=== PATIENT | male | born 1960 | race Asian ===

== ENCOUNTER 2016-11-11 15:05 | Observation (INO) | payer OTHER ==
[~2016-11-11] VITALS: Ht 170.2 cm; Wt 81.1 kg
[~2016-11-11 15:05] MED LIST: ASPIR 8181 M1; ASPIR 8181 M1 PO; AUGMENTIN875 MG PO; BACTRIM,SEPT1 TABLET PO; COUMADIN,JANTO2.5 MG; COUMADIN,JANTOVE5 MG PO; DAILY VITAMIN1 EAC8 PO; DAILY VITE1 EAC1 PO; FLEXERIL10 MG PO; FLOMAX0.4 M1; FLOMAX0.4 MG PO; HYDROCODON-ACE1 EAC7 PO; LOVASTATIN40 MG PO; LOVENOX100 MG/1 M; METHOTREXATE2.5 MG PO; MOTRIN IB200 MG PO; NAPROSYN500 MG PO; NAPROXEN500 MG PO; OXYCODONE H5 MG/5 ML PO; PANTOPRAZOLE; PROBIOTIC1 EAC1 PO; PROTONIX40 MG; PROTONIX40 MG PO; Protonix PO; TRAMADOL HCL50 MG PO; TYLENOL EXTRA500 MG PO; ZOFRAN4 MG PO; ZOLOFT100 MG PO; ZOLOFT50 M1 PO; ZYRTEC10 M3 PO; ZYRTEC5 MG PO
[2016-11-11 16:13] LABS: HEMATOCRIT 48.5 % (38.0-50.0); MCHC 34.4 G/DL (30.0-36.0); MEAN PLAT.VOLUME 9.5 uM^3 (9.0-12.4); PLATELET COUNT 223 K/uL (156-360); RBC DIS.WIDTH-CV 13.4 % (11.8-14.6); RBC DIS.WIDTH-SD 43.9 % (39-53); RED BLOOD COUNT 5.39 M/uL (4.00-5.50); WHITE BLOOD COUNT 7.9 K/uL (4.1-10.2)
[2016-11-11 16:27] LABS: CHLORIDE 106 mEq/L (99-109); POTASSIUM 3.8 mEq/L (3.7-5.4); SODIUM 139 mEq/L (136-147)
[2016-11-11 16:29] LABS: GLUCOSE 104 mg/dL (70-99)
[2016-11-11 16:31] LABS: ANION GAP 10 MEQ/L (2-14); TOTAL BILIRUBIN 0.6 mg/dL (0.0-1.0)
[2016-11-11 16:33] LABS: ALKALINE PHOSPHATASE 83 IU/L (3-129); GFR ESTIMATE (CALCULATED) > 59 mL/min/
[2016-11-11 16:34] LABS: UREA NITROGEN (BUN) 20 mg/dL (9-23)
[2016-11-11 16:37] LABS: LIPASE 20 U/L (1.0-51.0)
[2016-11-11 19:23] LABS: ADD MIUA? YES; BILIRUBIN NEGATIVE; BLOOD NEGATIVE; COLOR AMBER ((YELLOW)); GLUCOSE (STRIP) NEGATIVE; KETONES NEGATIVE; LEUKOCYTES NEGATIVE; NITRITE NEGATIVE; PROTEIN (STRIP) 30; SPECIFIC GRAVITY 1.025 (1.000-1.030); UROBILINOGEN 0.2 MG/DL (0.2-1.0)
[2016-11-11 20:03] LABS: BACTERIA NONE SEEN /HPF; EPITHELIAL CELLS RARE /HPF; MUCUS TRACE /LPF; UCUL ADDED? NO
[2016-11-11] MEDS ORDERED: ONE-A-DAY ESSE1 EAC1 PO (21:23)
[2016-11-11] MEDS ORDERED: LO-DOSE ASPIRIN81 M2 PO (21:24)
[2016-11-11 22:56] VITALS: BP 119/79
[2016-11-12 00:54] VITALS: BP 98/59
[2016-11-12 04:42] VITALS: BP 102/56
[2016-11-12 05:49] LABS: METH RESISTANT S AUREUS PCR NEGATIVE (NEGATIVE)
[2016-11-12 05:54] LABS: PROBE CHECK PASS; SPECIMEN PROCESSING CONTROL PASS
[2016-11-12 06:07] LABS: ANION GAP 8 MEQ/L (2-14); CHLORIDE 111 MEQ/L (99-109); GFR ESTIMATE (CALCULATED) > 59 mL/min/; GLUCOSE 89 mg/dL (70-99); POTASSIUM 3.4 MEQ/L (3.7-5.4); SAMPLE HEMOLYSIS CHECK 1; SAMPLE ICTERIC CHECK 0; SAMPLE LIPEMIA CHECK 0; SODIUM 139 MEQ/L (136-147); UREA NITROGEN (BUN) 17 mg/dL (9-23)
[2016-11-12 06:21] LABS: EOSINOPHIL (%) 2.2 % (0-5); EOSINOPHIL COUNT 0.1 K/uL (0-0.3); HEMATOCRIT 42.7 % (38.0-50.0); IMMATURE GRANULOCYTE (%) 0.4 % (0.0-0.7); LYMPHOCYTE COUNT 1.5 K/uL (1.0-2.8); MCH 30.4 PG (29.0-34.0); MCV 89.5 FL (86-99); MEAN PLAT.VOLUME 9.7 uM^3 (9.0-12.4); MONOCYTE (%) 15.7 % (3-12); MONOCYTE COUNT 0.9 K/uL (0-0.8); NEUTROPHIL (%) 54.7 % (45-76); PLATELET COUNT 211 K/uL (156-360); RBC DIS.WIDTH-CV 13.3 % (11.8-14.6); RBC DIS.WIDTH-SD 43.8 % (39-53); RED BLOOD COUNT 4.77 M/uL (4.00-5.50); WHITE BLOOD COUNT 5.5 K/uL (4.1-10.2)
[2016-11-12 09:00] VITALS: BP 106/73
[2016-11-12 12:28] VITALS: BP 103/59
[2016-11-12 16:55] VITALS: BP 105/61
[2016-11-12 21:00] VITALS: BP 104/64
[2016-11-13 00:10] VITALS: BP 101/71
[2016-11-13 04:58] VITALS: BP 116/67
[2016-11-13 07:00] VITALS: BP 113/70
[2016-11-13 11:58] VITALS: BP 110/66
[2016-11-13] MEDS ORDERED: BENTYL20 MG PO (13:58)
== END 2016-11-13 14:29 | disposition home or self-care (01) ==
LOC: EME 15:05 → EDOF 21:06 → 5WEST 21:06
PROVIDERS: Hospitalist
DX: K56.5 Intestinal adhesions [bands] with obstruction (postinfection) (principal); Z85.038 Personal history of other malignant neoplasm of large intestine; Z93.3 Colostomy status; Z86.711 Personal history of pulmonary embolism
CPT/HCPCS: 74020; 74176; 80048; 80053; 81003; 83690; 85025; 85027; 87641; 99281; 99285; G0378; J1650; J1885; J2405; J3010; J7030; S0028

== ENCOUNTER 2017-05-20 02:38 | Emergency (ER) | payer OTHER ==
[~2017-05-20] VITALS: Ht 170.2 cm; Wt 89.5 kg
[~2017-05-20 02:38] MED LIST changes: +BENTYL20 MG PO; +LO-DOSE ASPIRIN81 M2 PO; +ONE-A-DAY ESSE1 EAC1 PO
[2017-05-20 05:11] VITALS: BP 111/63
== END 2017-05-20 05:13 | disposition home or self-care (01) ==
LOC: EME 02:38
DX: J06.9 Acute upper respiratory infection, unspecified (principal); K21.9 Gastro-esophageal reflux disease without esophagitis; E78.5 Hyperlipidemia, unspecified; J45.909 Unspecified asthma, uncomplicated; F41.9 Anxiety disorder, unspecified; F32.9 Major depressive disorder, single episode, unspecified; Z79.82 Long term (current) use of aspirin; Z86.711 Personal history of pulmonary embolism; Z85.038 Personal history of other malignant neoplasm of large intestine; Z91.041 Radiographic dye allergy status; Z91.09 Other allergy status, other than to drugs and biological substances
CPT/HCPCS: 99281; 99284